=== PATIENT | male | born 1965 | race American Indian/Alaskan Native ===

== ENCOUNTER 2017-02-10 18:46 | Inpatient (IN) | payer OTHER ==
[2017-02-10 21:23] LABS: Basophils % (Auto) 1.3 % (0.0-1.8); Hematocrit 35.4 % (35.5-45.6); Hemoglobin 11.9 gm/dl (11.8-15.2); Mean Corpuscular HGB Conc 34 % (32-34); Mean Corpuscular Hemoglobin 28 pg (28-32); Mean Corpuscular Volume 85 fl (84-94); Platelet Count 243 K/mm3 (140-440); Red Blood Count 4.19 M/mm3 (3.65-5.03); Red Cell Distribution Width 13.5 % (13.2-15.2); White Blood Count 7.7 K/mm3 (4.5-11.0)
[2017-02-10 21:28] LABS: BUN/Creatinine Ratio 21.25; Blood Urea Nitrogen 17 mg/dL (9-20); Carbon Dioxide 26 mmol/L (22-30); Glucose 104 mg/dL (75-100)
[2017-02-10 21:29] LABS: Anion Gap 17 mmol/L; Chloride 100.7 mmol/L (98-107); Potassium 4.1 mmol/L (3.6-5.0); Sodium 140 mmol/L (137-145)
[2017-02-11] MEDS ORDERED: PROVENTIL IH ONE (00:22)
[2017-02-11] MEDS ORDERED: NACL 0.9% 1000 ML 1,000 ML IV ONE (00:22)
[2017-02-11] MEDS ORDERED: ATROVENT IH ONE (00:22)
[2017-02-11] MEDS ORDERED: TYLENOL PO ONE (00:22)
--- NOTE | 2017-02-11 00:26 | XRay Report ---
FINAL REPORT PROCEDURE: XR CHEST ROUTINE 2V TECHNIQUE: PA and lateral chest radiographs were obtained. CPT 96782 HISTORY: Shortness of breath COMPARISON: No prior studies are available for comparison. FINDINGS: Heart: Normal. Mediastinum/Vessels: Normal. Lungs/Pleural space: Mild vascular congestion. Slight atelectasis left lower lung. No effusion or pneumothorax. Bony thorax: No acute osseous abnormality. Other: IMPRESSION: Mild vascular congestion with slight atelectasis left lower lung..
--- NOTE | 2017-02-11 00:57 | Emergency Department Report ---
ED General Adult HPI - General Chief complaint: Upper Respiratory Infection Stated complaint: DIPAK/COUGH Time Seen by Provider: 02/11/17 00:12 Source: patient Mode of arrival: Ambulatory Limitations: No Limitations - History of Present Illness Initial comments: This is a 51-year-old male. He is previously unknown to me. He does not have a local primary care doctor. He reports a past medical history of HIV, does not know his CD4 count, does not know his viral load. He presents to the ER complaining of cough. Cough has been present for 3 weeks. It is not associated with chest pain. He denies shortness of breath with exertion. He only reports that he has shortness of breath when coughing. He denies nausea, vomiting, diaphoresis. There is no leg pain. There is no leg swelling. No recent trips greater than 4 hours. No recent hospital admissions. No unintentional weight gain. Denies severe headache and neck pain to me. Cough worsens when laying supine -: Gradual, week(s) Severity scale (0 -10): 6 Consistency: constant Improves with: rest Worsens with: other (lying flat) Associated Symptoms: cough, fever/chills, shortness of breath (when coughing otherwise not dyspneic). denies: confusion, chest pain, loss of appetite, malaise - Related Data Previous Rx's Medication Instructions Recorded Last Taken Type Albuterol Sulfate [Proair 90 mcg IH Q4HR PRN #2 aer.pow.ba 02/11/17 Unknown Rx Respiclick] Benzonatate [Tessalon Perles] 100 mg PO Q8HR PRN #30 capsule 02/11/17 Unknown Rx Sulfamethoxazole/Trimethoprim 1 each PO Q8H #65 tablet 02/12/17 Unknown Rx [Bactrim DS TAB] guaiFENesin/CODEINE [Robitussin AC] 10 ml PO Q4H PRN 7 Days 02/12/17 Unknown Rx Allergies Allergy/AdvReac Type Severity Reaction Status Date / Time No Known Allergies Allergy Verified 02/10/17 20:22 ED Review of Systems ROS: Stated complaint: DIPAK/COUGH Other details as noted in HPI Constitutional: fever. denies: malaise, weakness Eyes: denies: vision change Respiratory: cough Cardiovascular: denies: chest pain Gastrointestinal: denies: abdominal pain Genitourinary: denies: urgency, dysuria Musculoskeletal: denies: arthralgia, myalgia Skin: denies: as per HPI, lesions Neurological: denies: weakness, numbness, paresthesias, confusion, abnormal gait ED Past Medical Hx - Past Medical History Previous Medical History?: Yes Hx Heart Attack/AMI: Yes - Surgical History Past Surgical History?: No - Social History Smoking Status: Never Smoker Substance Use Type: None - Medications Home Medications: Home Medications Medication Instructions Recorded Confirmed Last Taken Type Albuterol Sulfate [Proair 90 mcg IH Q4HR PRN #2 aer.pow.ba 02/11/17 Unknown Rx Respiclick] Benzonatate [Tessalon Perles] 100 mg PO Q8HR PRN #30 capsule 02/11/17 Unknown Rx Sulfamethoxazole/Trimethoprim 1 each PO Q8H #65 tablet 02/12/17 Unknown Rx [Bactrim DS TAB] guaiFENesin/CODEINE [Robitussin AC] 10 ml PO Q4H PRN 7 Days 02/12/17 Unknown Rx ED Physical Exam - General Limitations: No Limitations General appearance: alert, in no apparent distress - Head Head exam: Present: atraumatic, normocephalic - Eye Eye exam: Present: normal appearance, EOMI. Absent: nystagmus - ENT ENT exam: Present: normal exam, mucous membranes moist, other (white plaque is noted at the tip of the tongue. Otherwise no plaques are noted distally. Speaking in full sentences. No stridor. No dysphonia. No trismus.) - Neck Neck exam: Present: normal inspection, full ROM. Absent: tenderness, meningismus - Respiratory Respiratory exam: Present: normal lung sounds bilaterally. Absent: respiratory distress, wheezes, rales, rhonchi, stridor, decreased breath sounds - Cardiovascular Cardiovascular Exam: Present: regular rate, normal rhythm, normal heart sounds. Absent: bradycardia, tachycardia, irregular rhythm, systolic murmur, diastolic murmur, rubs, gallop - GI/Abdominal GI/Abdominal exam: Present: soft, normal bowel sounds. Absent: distended, tenderness, guarding, rebound, rigid, pulsatile mass - Rectal Rectal exam: Present: deferred - Extremities Exam Extremities exam: Present: normal inspection, full ROM, normal capillary refill. Absent: tenderness, pedal edema, joint swelling, calf tenderness - Back Exam Back exam: Present: normal inspection, full ROM. Absent: tenderness, CVA tenderness (R), CVA tenderness (L), muscle spasm, paraspinal tenderness, vertebral tenderness - Neurological Exam Neurological exam: Present: alert, oriented X3, normal gait, other (Extraocular movements intact. Tongue midline. No facial droop. Facial sensation intact to light touch in the V1, V2, V3 distribution bilaterally. 5 and 5 strength in 4 extremities.. Sensation is intact to light touch in 4 extremities.). Absent : motor sensory deficit - Psychiatric Psychiatric exam: Present: normal affect, normal mood - Skin Skin exam: Present: warm, dry, intact, normal color. Absent: rash ED Course Vital Signs 02/10/17 02/10/17 02/10/17 19:10 23:20 23:27 Temperature 100.5 F H 99.6 F Pulse Rate 100 H 91 H Pulse Rate [ Anterior Bilateral Throughout] Respiratory 20 16 Rate Respiratory Rate [Anterior Bilateral Throughout] Blood Pressure Blood Pressure 124/73 [Left] Blood Pressure 126/77 [Right] O2 Sat by Pulse 96 97 96 Oximetry 02/10/17 02/11/17 02/11/17 23:35 00:00 00:50 Temperature Pulse Rate Pulse Rate [ Anterior Bilateral Throughout] Respiratory 16 16 Rate Respiratory Rate [Anterior Bilateral Throughout] Blood Pressure 116/68 Blood Pressure [Left] Blood Pressure [Right] O2 Sat by Pulse 96 95 Oximetry 02/11/17 02/11/17 02/11/17 01:00 01:15 01:24 Temperature Pulse Rate Pulse Rate [ 86 90 Anterior Bilateral Throughout] Respiratory Rate Respiratory 18 18 Rate [Anterior Bilateral Throughout] Blood Pressure 122/72 Blood Pressure [Left] Blood Pressure [Right] O2 Sat by Pulse 97 Oximetry 02/11/17 02/11/17 02/11/17 02:01 06:39 07:29 Temperature 98.2 F Pulse Rate 79 74 Pulse Rate [ Anterior Bilateral Throughout] Respiratory 20 18 Rate Respiratory Rate [Anterior Bilateral Throughout] Blood Pressure 114/76 Blood Pressure 100/66 102/65 [Left] Blood Pressure [Right] O2 Sat by Pulse 96 96 97 Oximetry 02/11/17 08:19 Temperature 98.2 F Pulse Rate 91 H Pulse Rate [ Anterior Bilateral Throughout] Respiratory 18 Rate Respiratory Rate [Anterior Bilateral Throughout] Blood Pressure Blood Pressure 128/77 [Left] Blood Pressure [Right] O2 Sat by Pulse 99 Oximetry - Reevaluation(s) Reevaluation #1: 02/11/17 00:54 Differential diagnosis: Bronchitis, pneumonia, Assessment and plan: 51-year-old male who is HIV positive, does not know his CD4 count, does not know his viral load, with cough. He does not have decrease in exercise tolerance. He has no focal pulmonary findings on examination. Low- grade temperature, with no wheezes, rales or rhonchi. Symptoms most likely consistent with bronchitis. Clinically he does not appear to be volume overloaded. He is very clinically well-appearing. He will be treated empirically with albuterol, Atrovent, acetaminophen. X-ray of the chest not consistent with pneumonia. Symptoms have been present for 3 weeks, clinically have very low suspicion for acute coronary syndrome, patient has no pulmonary embolus or DVT risk factors, and he is low risk by well's criteria. I appreciate the blood cultures were ordered prior to my evaluation, given symptoms, physical examination, duration of symptoms, I think it is very unlikely that the patient is bacteremic. Troponin is ordered prior to my evaluation. However, I don't think patient requires an emergent acute coronary syndrome risk stratification. I don't believe he requires IV antibiotic therapy. 02/11/17 00:56 Reevaluation #2: 02/11/17 02:00 patient reassessed. Minimally tachycardic at this time, most likely secondary to albuterol therapy. He is not experiencing shortness of breath symptomatically, however when he was given a trial of ambulation, his O2 sat decreased to 92%. ABG, d-dimer, pro BMP ordered. Reevaluation #3: 02/11/17 02:33 ABG demonstrates hypoxemia, with a PaO2 of 66 on room air. D- dimer is negative. LDH is pending. ProBNP is pending. Steroids and IV Bactrim ordered. Given hypoxemia, nonspecific findings, desaturation with physical exertion, patient will be admitted for further evaluation and management. Case is discussed with the Hospital physician, Dr. Farfan, who graciously accepts the patient to his service. ED Medical Decision Making - Lab Data Result diagrams: 02/10/17 20:49 02/10/17 20:49 Vital Signs 02/10/17 02/10/17 02/10/17 19:10 23:27 23:35 Temperature 100.5 F H 99.6 F Pulse Rate 100 H 91 H Respiratory 20 16 16 Rate Blood Pressure 124/73 [Left] Blood Pressure 126/77 [Right] O2 Sat by Pulse 96 96 96 Oximetry 02/11/17 00:50 Temperature Pulse Rate Respiratory 16 Rate Blood Pressure [Left] Blood Pressure [Right] O2 Sat by Pulse Oximetry Lab Results 02/10/17 02/10/17 Range/Units 20:49 20:49 WBC 7.7 (4.5-11.0) K/mm3 RBC 4.19 (3.65-5.03) M/mm3 Hgb 11.9 (11.8-15.2) gm/dl Hct 35.4 L (35.5-45.6) % MCV 85 (84-94) fl MCH 28 (28-32) pg MCHC 34 (32-34) % RDW 13.5 (13.2-15.2) % Plt Count 243 (140-440) K/mm3 Lymph % (Auto) 19.8 (13.4-35.0) % [place] % (Auto) 9.3 H (0.0-7.3) % Eos % (Auto) 2.0 (0.0-4.3) % Baso % (Auto) 1.3 (0.0-1.8) % Lymph # 1.5 (1.2-5.4) K/mm3 [place] # 0.7 (0.0-0.8) K/mm3 Eos # 0.2 (0.0-0.4) K/mm3 Baso # 0.1 (0.0-0.1) K/mm3 Seg Neutrophils % 67.6 (40.0-70.0) % Seg Neutrophils # 5.2 (1.8-7.7) K/mm3 Sodium 140 (137-145) mmol/L Potassium 4.1 (3.6-5.0) mmol/L Chloride 100.7 (98-107) mmol/L Carbon Dioxide 26 (22-30) mmol/L Anion Gap 17 mmol/L BUN 17 (9-20) mg/dL Creatinine 0.8 (0.8-1.5) mg/dL Estimated GFR > 60 ml/min BUN/Creatinine Ratio 21.25 % Glucose 104 H (75-100) mg/dL Calcium 9.0 (8.4-10.2) mg/dL Troponin T < 0.010 (0.00-0.029) ng/mL - EKG Data When compared to previous EKG there are: previous EKG unavailable 02/11/17 00:57 normal sinus, 96 bpm, premature ventricular contractions, QTC 442 ms, not morphologically consistent with STEMI, there is no prior EKG available for comparison - Radiology Data Radiology results: report reviewed, image reviewed X-ray of the chest demonstrates mild vascular congestion. There is slight atelectasis in the left lower lung. There is no effusion or pneumothorax. Critical care attestation.: If time is entered above; I have spent that time in minutes in the direct care of this critically ill patient, excluding procedure time. ED Disposition Clinical Impression: Cough, Hypoxemia Disposition: OP ADMITTED IP TO THIS HOSP Is pt being admited?: Yes Does the pt Need Aspirin: No Condition: Stable
[2017-02-11] MEDS ORDERED: ZITHROMAX PO ONE (00:59)
[2017-02-11] MEDS ORDERED: ROCEPHIN/NS 1 GM/50 ML 50 ML IV ONE (02:29)
[2017-02-11] MEDS ORDERED: BACTRIM IV ONE (02:32)
[2017-02-11] MEDS ORDERED: D5W IV ONE (02:32)
--- NOTE | 2017-02-11 03:30 | History and Physical Report ---
History of Present Illness Date of examination: 02/11/17 Chief complaint: cough and SOB History of present illness: 51-year-old -[place] male with medical history significant for HIV presented to the emergency department with complaints of cough, shortness of breath for the last 3 weeks. The cough is productive of whitish sputum. patient denied fever, chills. Patient was diagnosed with HIV in 1991 and never be on HIV medications. The patient was desaturating while ambulating. ABG was done and Pao2 was 66. LDH level was high and patient admitted for possible PCP and bronchitis. REVIEW OF SYSTEMS: GENERAL: no weight change, no fatigue, no fever HEAD: no head ache EYES: no blurry vision, no acute visual loss EARS: no hearing loss, no discharge, no earache NOSE: no stuffiness, no sneezing, no discharge MOUTH, THROAT AND NECK: no bleeding gums, no sore throat, no swollen neck CARDIAC: no palpitations, no dyspnea on exertion, no orthopnea, no PND, no edema , no chest pain RESPIRATORY: + shortness of breath, no wheeze, + cough, + sputum, no hemoptysis , no asthma GI: no decreased appetite, no nausea, no vomiting, no dysphagia, no diarrhea, no constipation, no abdominal pain URINARY: no change in frequency, no urgency, no polyuria, no hematuria, no incontinence MUSCULOSKELETAL: no muscle weakness, no pain, no joint stiffness NEUROLOGIC: no loss of sensation/numbness, no tingling, no tremors, no weakness/ paralysis HEMATOLOGIC: no anemia, no easy bruising SKIN: no rashes ENDOCRINE: no heat/cold intolerance, no polyuria, no polydipsia, no thyroid problems, no diabetes PSYCHIATRIC: no anxiety, no depression, no suicidal ideations Past History Past Medical History: HIV/AIDS Past Surgical History: No surgical history, Other Social history: full code. denies: alcohol abuse, prescription drug abuse, IV drug use Family history: hypertension (both maternal and paternal side) Medications and Allergies Allergies Allergy/AdvReac Type Severity Reaction Status Date / Time No Known Allergies Allergy Verified 02/10/17 20:22 Home Medications Medication Instructions Recorded Confirmed Last Taken Type Albuterol Sulfate [Proair 90 mcg IH Q4HR PRN #2 aer.pow.ba 02/11/17 Unknown Rx Respiclick] Azithromycin [Zithromax Z-KEISHA] 250 mg PO QDAY #4 tablet 02/11/17 Unknown Rx Benzonatate [Tessalon Perles] 100 mg PO Q8HR PRN #30 capsule 02/11/17 Unknown Rx Active Meds: Active Medications Enoxaparin Sodium (Lovenox) 40 mg SUB-Q QDAY ELSIE Trimethoprim/Sulfamethoxazole (410 mg/ Dextrose) 525.625 mls @ 262.813 mls/hr IV ONCE.ED ONE PRN Reason: Protocol Stop: 02/11/17 04:31 Azithromycin 500 mg/ Sodium (Chloride) 250 mls @ 250 mls/hr IV Q24HR ELSIE Trimethoprim/Sulfamethoxazole (Bactrim Ds) 1 each PO Q12HR ELSIE Exam - Physical Exam Narrative exam: Not in cardiopulmonary distress. The patient appeared well nourished and normally developed. Vital signs as documented. Head exam is unremarkable. No scleral icterus . Neck is without jugular venous distension, thyromegaly, or carotid bruits. Lungs are clear to auscultation. Cardiac exam reveals regular rate and Rhythm. First and second heart sounds normal. No murmurs, rubs or gallops. Abdominal exam reveals normal bowel sounds, no masses, no organomegaly and no aortic enlargement. Extremities are nonedematous and both femoral and pedal pulses are normal. CHORUS DANCER: Alert and oriented 3. No focal weakness. - Constitutional Vitals: Temp Pulse Resp BP Pulse Ox 99.6 F 90 18 124/73 96 02/10/17 23:27 02/11/17 01:24 02/11/17 01:24 02/10/17 23:27 02/10/17 23:35 Results - Labs CBC & Chem 7: 02/10/17 20:49 02/10/17 20:49 Labs: Laboratory Last Values WBC 7.7 K/mm3 (4.5-11.0) 02/10/17 20:49 RBC 4.19 M/mm3 (3.65-5.03) 02/10/17 20:49 Hgb 11.9 gm/dl (11.8-15.2) 02/10/17 20:49 Hct 35.4 % (35.5-45.6) L 02/10/17 20:49 MCV 85 fl (84-94) 02/10/17 20:49 MCH 28 pg (28-32) 02/10/17 20:49 MCHC 34 % (32-34) 02/10/17 20:49 RDW 13.5 % (13.2-15.2) 02/10/17 20:49 Plt Count 243 K/mm3 (140-440) 02/10/17 20:49 Lymph % (Auto) 19.8 % (13.4-35.0) 02/10/17 20:49 [place] % (Auto) 9.3 % (0.0-7.3) H 02/10/17 20:49 Eos % (Auto) 2.0 % (0.0-4.3) 02/10/17 20:49 Baso % (Auto) 1.3 % (0.0-1.8) 02/10/17 20:49 Lymph # 1.5 K/mm3 (1.2-5.4) 02/10/17 20:49 [place] # 0.7 K/mm3 (0.0-0.8) 02/10/17 20:49 Eos # 0.2 K/mm3 (0.0-0.4) 02/10/17 20:49 Baso # 0.1 K/mm3 (0.0-0.1) 02/10/17 20:49 Seg Neutrophils % 67.6 % (40.0-70.0) 02/10/17 20:49 Seg Neutrophils # 5.2 K/mm3 (1.8-7.7) 02/10/17 20:49 D-Dimer 215.72 ng/mlDDU (0-234) 02/11/17 01:57 Sodium 140 mmol/L (137-145) 02/10/17 20:49 Potassium 4.1 mmol/L (3.6-5.0) 02/10/17 20:49 Chloride 100.7 mmol/L (98-107) 02/10/17 20:49 Carbon Dioxide 26 mmol/L (22-30) 02/10/17 20:49 Anion Gap 17 mmol/L 02/10/17 20:49 BUN 17 mg/dL (9-20) 02/10/17 20:49 Creatinine 0.8 mg/dL (0.8-1.5) 02/10/17 20:49 Estimated GFR > 60 ml/min 02/10/17 20:49 BUN/Creatinine Ratio 21.25 % 02/10/17 20:49 Glucose 104 mg/dL (75-100) H 02/10/17 20:49 Calcium 9.0 mg/dL (8.4-10.2) 02/10/17 20:49 Lactate Dehydrogenase 292 units/L (91-180) H 02/10/17 20:49 Troponin T < 0.010 ng/mL (0.00-0.029) 02/10/17 20:49 NT-Pro-B Natriuret Pep 39.73 pg/mL (0-900) 02/11/17 01:57 - Imaging and Cardiology Chest x-ray: report reviewed (mild vascular congestion with a slight atelectasis of the left lower lung.) Assessment and Plan Assessment and plan: PCP Bronchitis HIV/AIDS - Start him on bactrim, azithromycin - Was given a dose of solumedrol - Patient said he will go to ID doctor for start of his medications Prophylaxis - Lovenox Disposition - Admit to the floor Advance Directives: Yes VTE prophylaxis?: Chemical Plan of care discussed with patient/family: Yes
--- NOTE | 2017-02-11 05:47 | Admit Criteria Form ---
Admission Criteria Documentation: PULMONARY DISEASE GRG Clinical Indications for Admission to Inpatient Care ( Place 'X' for any and all applicable criteria): Hospital admission is needed for appropriate care of the patient because of ANY ONE of the following(1): [ ]I. Impending or actual respiratory arrest ( Use Respiratory Failure Criteria for severe respiratory disease and long-term mechanical ventilation patients) (4) [ ]II. Severe airflow or ventilation abnormalities (not responsive to emergency and observation care treatment as appropriate) as indicated by ANY ONE of the following(5)(6)(7)(8) : [ ]a) PCO2 > 42 mm Hg (5.6 kPa) and pH < 7.35 (new) [ ]b) Documented PCO2 increase > 5 mm Hg (0.7 kPa) from disease baseline [ ]c) Airflow measurements[A] < 60% of previous best or predicted ( e.g., PEF <300 L/minute) despite intensive emergent treatment[B] [ ]d) Required respiratory treatments that are performable only in acute inpatient setting [X ]III. Severe respiratory findings (not responsive to emergency and observation care treatment as appropriate) including ANY ONE of the following(5)(8)(9): [ X]a) Respiratory distress as indicated by ALL of the following(5)(10) : [X ]i) Patient with ANY ONE of the following: [ X]1) Dyspnea (difficulty breathing) [ ]2) Abnormal breathing pattern (eg, chest retractions) [ ]3) Tachypnea [ ]4) Other evidence of difficulty breathing [X ]ii) Evidence of respiratory compromise indicated by ANY ONE of the following: [X ]1) Hypoxemia [ ]2) Altered mental status [X ]3) Other evidence of respiratory compromise (eg, pulmonary edema on chest x-ray) [ ]b) Stridor [ ]c) Gross hemoptysis(11) [ ]d) Acute cyanosis [ ]IV. High-risk pulmonary infection as indicated by ANY ONE of the following( 19)(20)(21)(22): [ ]a) Temperature less than 95 degrees F(35 degrees C) or greater than 103.1 degrees F(39.5 degrees C) [ ]b) Hemodynamic instability that remains after emergency or observation level care (as appropriate) [ ]c) Immunocompromised patient (eg, AIDS, post transplant, neutropenic) [ ]d) History of severe COPD [ ]e) History of severely symptomatic congestive heart failure [ ]f) Other high-risk comorbidity (eg, poorly controlled diabetes, cirrhosis, chronic renal insufficiency) [ ]g) Hypoxemia (new) [ ]h) Outpatient, observation, or recovery facility therapy has failed, is not appropriate, or is not feasible [ ]V. Severe atelectasis or lung collapse(15)(16) [ ]. Tuberculosis requiring inpatient treatment as indicated by ANY ONE of the following(17)(18): [ ]a) New positive acid-fast bacilli sputum smear [ ]b) Positive acid-fast bacilli smear (under current treatment), with ANY ONE of the following: [ ]i) Unexposed household contacts [ ]ii) Infants or immunosuppressed household contacts [ ]iii) Patient unable or unwilling to avoid exposing others [ ]iv) Severe immunocompromised patient (eg, AIDS, post transplant, neutropenic) [ ]VII. Empyema or lung abscess(13)(14) [ ]VIII. Severe pulmonary arterial hypertension or pulmonary vascular disease requiring inpatient care indicated by ANY ONE of the following(24)(25): [ ]a) Initiation or change of vasodilators (IV, subcutaneous, or inhaled) or other vasoactive medications needed [ ]b) IV anticoagulation needed (eg, immediate anticoagulation necessary, alternatives not appropriate) [ ]c) Arterial or pulmonary artery catheter monitoring needed due to infusion or other treatment [ ]IX. Chronic lung disease with severe deterioration (not responsive to emergency and observation care treatment as appropriate) as indicated by ANY ONE of the following (6)(12): [ ]a) SaO2 5% below baseline in patient with chronic hypoxemia [ ]b) New requirement for supplemental oxygen to keep SaO2 at baseline or acceptable level [ ]c) Required supplemental oxygen performable only in acute inpatient setting [ ]d) Severe airflow or ventilation abnormalities [ ]e) Rapid rate of exacerbation onset [ ]f) Previously mobile patient unable to walk between rooms [ ]g) Inability to eat or sleep due to dyspnea [ ]h) Altered mental status [ ]X. Cystic fibrosis with severe deterioration as indicated by ANY ONE of the following(26)(27): [ ]a) Severe exacerbation that does not respond to intensified home therapy [ ]b) Pneumonia [ ]c) Hemoptysis [ ]d) Atelectasis [ ]e) Pneumothorax [ ]f) Respiratory failure [ ]g) Severe exacerbation with patient unable to perform prescribed treatments at home [ ]XI. Severe right heart failure as indicated by ANY ONE of the following(24) (25): [ ]a) Increasing organ failure (eg, liver congestion with significant and worsening or new elevation of transaminases) [ ]b) Anasarca [ ]c) Angina that requires inpatient care (eg, not treatable in emergency or observation level of care) [ ]d) Respiratory distress [ ]e) Syncope [ ]f) SBP < 90 mm Hg (new) [ ]XII. Injury requiring inpatient care (medical) as indicated by ANY ONE of the following(28): [ ]a) Significant inhalation injury (eg, smoke inhalation, other toxic inhalation) (29)(30)(31) [ ]b) Airway obstruction that remains or is unstable after emergency or observation level care(32) [ ]c) Severe pain requiring acute inpatient management [ ]d) Lung contusion [ ]e) Bronchial tree injury [ ]f) Air or fat emboli(33) [ ]g) Other injury not treatable in emergency or observation level care (eg, hemothorax) (34) [ ]XIII. Pulmonary hemorrhage or significant hemoptysis(11)(35)(36) [ ]XIV. Inpatient palliative care needed[C](37)(38)(39)(40) [ ]XV. Complications of lung transplant (eg, rejection, failure, respiratory infection) (23) [ ]XVI. Pulmonary Disease and ANY ONE of the following: [ ]a) General Admission Criteria [ ]b) Pediatric General Admission Criteria The original [facility] [employer] content created by [facility] has been revised. The portions of the content which have been revised are identified through the use of italic text or in bold, and [facility] has neither reviewed nor approved the modified material. All other unmodified content is copyright [facility]. Please see references footnoted in the original [facility] edition 2016 Admission Criteria Met: Yes
[2017-02-11 06:30] LABS: ISTAT Base Excess -3; ISTAT DEVICE 0; ISTAT HCO3 21.9; ISTAT PCO2 36.7 (35-45); ISTAT PH 7.385 (7.35-7.45); ISTAT PO2 66 (80-105); ISTAT SO2 93; ISTAT TCO2 23
[2017-02-11] MEDS ORDERED: LOVENOX SUB-Q SCH (10:00)
[2017-02-11] MEDS: LOVENOX SUB-Q SCH (10:47)
[2017-02-11] MEDS: BACTRIM DS PO SCH ×2 (10:47→21:13)
--- NOTE | 2017-02-11 13:41 | Cat Scan Report ---
CT scan of chest without IV contrast: History: Pneumonia. Findings: No endobronchial or mediastinal mass. No mediastinal, hilar or axillary adenopathy. No pleural pericardial effusion. Bilateral peribronchial and alveolar infiltrates. Distribution appears bilaterally symmetric. There are a few scattered lung cysts noted. Impression: Pulmonary edema or bilateral pneumonia.
--- NOTE | 2017-02-11 15:38 | Event Note ---
Date: 02/11/17 Patient seen and examined, in no acute distress. still with cough, non productive. some shortness of breath. no edema in lower ext. Check CT CHEST. ID consult.
--- NOTE | 2017-02-11 19:36 | Consultation ---
History of Present Illness - Reason for Consult Consult date: 02/11/17 PNEUMONIA Requesting physician: LOI SUTTON - History of Present Illness 1-year-old -[place]er male with medical history significant for HIV presented to the emergency department with complaints of cough, shortness of breath for the last 3 weeks. The cough is productive of whitish sputum. patient denied fever, chills. Patient was diagnosed with HIV in 1991 and never be on HIV medications. The patient was desaturating while ambulating. ABG was done and Pao2 was 66. LDH level was high and patient admitted for possible PCP and bronchitis. INFECTIOUS DISEASE CONSULTED. I SAW PATIENT AT BEDSIDE THIS MORNING. hE SAYS HE FEELS BETTER. dENIED ANY OTHER SYMPTOMS. PE VS - Afebrile. Chest - good air entry cvs - s1s2 abd - bs+ extr - no edema LABS Reviewed. See lab section ASSESSMENT. 1. Bilateral pneumonia ?pcp. 2. HIV/AIDS Recommendation 1.Agree with current antibiotics 2. cd4 count and HIV RNA QTY 3. cbc/bmp in am Past History Past Medical History: HIV/AIDS Past Surgical History: No surgical history, Other Social history: full code. denies: alcohol abuse, prescription drug abuse, IV drug use Family history: hypertension (both maternal and paternal side) Medications and Allergies Allergies Allergy/AdvReac Type Severity Reaction Status Date / Time No Known Allergies Allergy Verified 02/10/17 20:22 Home Medications Medication Instructions Recorded Confirmed Last Taken Type Albuterol Sulfate [Proair 90 mcg IH Q4HR PRN #2 aer.[email or web address] 02/11/17 Unknown Rx Respiclick] Azithromycin [Zithromax Z-KEISHA] 250 mg PO QDAY #4 tablet 02/11/17 Unknown Rx Benzonatate [Tessalon Perles] 100 mg PO Q8HR PRN #30 capsule 02/11/17 Unknown Rx Active Meds: Active Medications Enoxaparin Sodium (Lovenox) 40 mg SUB-Q QDAY@1000 ELSIE Last Admin: 02/11/17 10:47 Dose: Not Given Azithromycin 500 mg/ Sodium (Chloride) 250 mls @ 250 mls/hr IV Q24HR@2200 ELSIE Trimethoprim/Sulfamethoxazole (Bactrim Ds) 1 each PO Q12HR [facility] Last Admin: 02/11/17 10:47 Dose: 1 each Physical Examination - Constitutional Vitals: Vital Signs Temp Pulse Resp BP Pulse Ox 98.5 F 80 18 106/62 98 02/11/17 16:00 02/11/17 16:00 02/11/17 16:00 02/11/17 16:00 02/11/17 09:00 Temperature -Last 24 Hours Temperature 98.5 F Temperature 98.2 F Temperature 98.2 F Temperature 98.2 F Results - Labs CBC & Chem 7: 02/10/17 20:49 02/10/17 20:49
[2017-02-11] MEDS ORDERED: ZITHROMAX 500 MG in NACL 0.9% 250ML 250 ML IV SCH (22:00)
[2017-02-12] MEDS ORDERED: ROBITUSSIN AC PO PRN (08:13)
[2017-02-12 08:44] VITALS: BP 112/60
--- NOTE | 2017-02-12 10:34 | Discharge Summary ---
Providers - Providers Date of Admission: 02/11/17 06:07 Date of discharge: 02/12/17 Attending physician: LOI SUTTON MD 02/11/17 12:41 Consult to Physician [CONS] Routine Consulting Provider: ANGELA LICEA Reason For Exam: concerning for pneumonia immunocompromise Place consult to:: DR. LICEA Notified:: [employer] Phone number called:: [phone] Was contact made?: Yes If yes, spoke with:: BEN Time called:: 13:23 Comment:: NITA NOTIFIED Primary care physician: [facility] Hospitalization Reason for admission: shortness of breath Condition: Stable Hospital course: 51-year-old -[place] male with medical history significant for HIV presented to the emergency department with complaints of cough, shortness of breath for the last 3 weeks. The cough is productive of whitish sputum. patient denied fever, chills. Patient was diagnosed with HIV in 1991 and never be on HIV medications. The patient was desaturating while ambulating. ABG was done and Pao2 was 66. LDH level was high and patient admitted for possible PCP and bronchitis. Patient is unsure as to when he will start his HAART therapy. He is clinically improved. Discharge diagnosis * Acute RESPIRATORY FAILURE * BILATERAL PNEUMONIA * ACUTE BRONCHITIS * HIV/AIDS Disposition: DISCHARGED TO HOME OR SELFCARE Time spent for discharge: 35 mins Core Measure Documentation - Palliative Care Palliative Care/ Comfort Measures: Not Applicable - Core Measures Any of the following diagnoses?: none - VTE Discharge Requirements Deep Vein Thrombosis/Pulmonary Embolism Present on Admission: No Exam - Physical Exam Narrative exam: VITAL SIGNS: Reviewed. GENERAL: The patient appeared well nourished and normally developed. Vital signs as documented. HEAD: No signs of head trauma. EYES: Pupils are equal. Extraocular motions intact. EARS: Hearing grossly intact. MOUTH: Oropharynx is normal. NECK: No adenopathy, no JVD. CHEST: Chest with clear breath sounds bilaterally. No wheezes, rales, or rhonchi. CARDIAC: Regular rate and rhythm. S1 and S2, without murmurs, gallops, or rubs. VASCULAR: No Edema. Peripheral pulses normal and equal in all extremities. ABDOMEN: Soft, without detectable tenderness. No sign of distention. No rebound or guarding, and no masses palpated. Bowel Sounds normal. MUSCULOSKELETAL: Good range of motion of all major joints. Extremities without clubbing, cyanosis or edema. NEUROLOGIC EXAM: Alert and oriented x 3. No focal sensory or strength deficits. Speech normal. Follows commands. PSYCHIATRIC: Mood normal. SKIN: No rash or lesions. ate - Constitutional Vitals: Temp Pulse Resp BP Pulse Ox 98 F 68 16 112/60 97 02/12/17 08:00 02/12/17 08:00 02/12/17 08:00 02/12/17 08:00 02/12/17 08:00 Plan Activity: advance as tolerated, fall precautions Diet: regular Follow up with: TRISTON JOHNSON MD [Staff Physician] - 3-5 Days PRIMARY CARE, [Primary Care Provider] - 3-[address]ER MD [Staff Physician] - 3-5 Days MICHELLE SULLIVAN MD [Staff Physician] - 3-5 Days Prescriptions: Albuterol Sulfate [Proair Respiclick] 90 mcg IH Q4HR PRN #2 aer.[email or web address] PRN Reason: Wheezing Benzonatate [Tessalon Perles] 100 mg PO Q8HR PRN #30 capsule PRN Reason: Cough guaiFENesin/CODEINE [Robitussin AC] 10 ml PO Q4H PRN 7 Days PRN Reason: Cough Sulfamethoxazole/Trimethoprim [Bactrim DS TAB] 1 each PO Q8H #65 tablet
[2017-02-12] MEDS: BACTRIM DS PO SCH (11:25)
[2017-02-12] MEDS: LOVENOX SUB-Q SCH (11:25)
[2017-02-15 08:44] LABS: HIV-1 RNA QN PCR 5.13 Log cps/mL (<1.30)
== END 2017-02-12 13:45 | disposition home or self-care (01) | DRG 974 ==
LOC: ED 18:46 → 3A 02-11 06:07
PROVIDERS: ADMIT Internal Medicine; ATTEND Internal Medicine
DX: B20 Human immunodeficiency virus [HIV] disease (principal); B59 Pneumocystosis; J96.00 Acute respiratory failure, unspecified whether with hypoxia or hypercapnia; I25.2 Old myocardial infarction; Z82.49 Family history of ischemic heart disease and other diseases of the circulatory system; J40 Bronchitis, not specified as acute or chronic
CPT/HCPCS: 36415; 71020; 71250; 80048; 82024; 82803; 83615; 83880; 84484; 85025; 85379; 87040; 87449; 87536; 93005; 93010; 94640; 96361; 96365; 96375; J0456; J1650; J2930; J7030; J7050; J7060